=== PATIENT | male | born 1970 | race Caucasian/White ===

== ENCOUNTER 2022-10-08 14:14 | Inpatient (IN) | payer MEDICAID ==
[~2022-10-08] VITALS: Ht 172.7 cm; Wt 108.4 kg
[2022-10-08] MEDS ORDERED: AMIODARONE HCL 50MG/ML 3ML VIAL IV ONE (14:45)
[2022-10-08 15:05] LABS: CHLORIDE 108 mEq/L (98-107)
[2022-10-08 15:17] LABS: BASOPHILS % 0.7 % (0.0-2.0); EOSINOPHILS % 1.4 % (0.0-5.0); HEMATOCRIT. 40.4 % (42.0-52.0); HEMOGLOBIN. 13.8 g/dL (14.0-18.0); LYMPHOCYTES % 23.9 % (20.0-50.0); MEAN CORPUSCULAR HEMOGLOBIN 30.8 pg (28.0-32.0); MEAN CORPUSCULAR VOLUME 90.1 fL (80.0-94.0); MEAN PLATELET VOLUME 10.6 fl (7.4-10.4); MONOCYTES % 7.2 % (2.0-8.0); NEUTROPHILS % 66.8 % (40.0-76.0); PLATELET 228 x1000/uL (130-400); RED BLOOD CELL COUNT 4.48 mill/uL (4.7-6.1)
[2022-10-08] MEDS ORDERED: AMIODARONE HCL 150 MG in DEXT 5% WATER 100 ML IV ONE (15:30)
[2022-10-08] MEDS ORDERED: FUROSEMIDE 40MG/4ML VIAL IVP ONE (16:15)
[2022-10-08] MEDS ORDERED: APIXABAN 5 MG TABLET PO ONE (16:15)
[2022-10-08] MEDS ORDERED: CALCIUM CHLORIDE 1,000 MG in DEXT 5% WATER 90 ML IV ONE (16:30)
[2022-10-08] MEDS ORDERED: DILTIAZEM HCL 5MG/ML 5ML VIAL IV ONE ×3 (16:30→18:00)
[2022-10-08] MEDS ORDERED: DILTIAZEM HCL 125 MG in DEXT 5% WATER 100 ML IV ONE ×2 (18:00→18:30)
[2022-10-08] MEDS ORDERED: ONDANSETRON HCL 4MG/2ML INJ IV PRN (19:15)
[2022-10-08] MEDS ORDERED: NITROGLYCERIN 0.4MG TABLET SL SL PRN (19:15)
[2022-10-08] MEDS ORDERED: MAGNESIUM/ALUMINUM HYDROXIDE/SIMETHICONE 30ML UDC PO PRN (19:15)
[2022-10-08] MEDS ORDERED: DOCUSATE SODIUM 100MG CAPSULE PO PRN (19:15)
[2022-10-08] MEDS ORDERED: IPRATROPIUM/ALBUTEROL 0.5-3(2.5)MG/3ML NEB NEB PRN (19:15)
[2022-10-08] MEDS ORDERED: NA PHOS,M-B/NA PHOS,DI-BA ENEMA 118ML PR PRN (19:15)
[2022-10-08] MEDS ORDERED: ZOLPIDEM TARTRATE 5MG TABLET PO PRN (19:15)
[2022-10-08] MEDS ORDERED: GUAIFENESIN 200MG/10ML SUGAR FREE UDC PO PRN (19:15)
[2022-10-08] MEDS ORDERED: CLONIDINE 0.1MG TABLET PO PRN (19:15)
[2022-10-08] MEDS ORDERED: ACETAMINOPHEN 325MG TABLET PO PRN ×2 (19:15)
[2022-10-08] MEDS ORDERED: DILTIAZEM HCL 125 MG in DEXT 5% WATER 100 ML IV SCH (19:15)
[2022-10-08] MEDS ORDERED: KETOROLAC 15MG/ML VIAL IV PRN (19:15)
[2022-10-08 19:37] LABS: ETHANOL BLOOD < 10 mg/dL; HDL CHOLESTEROL 37 mg/dL (40-59); LDL CHOLESTEROL 50 mg/dL (5-100); T4 FREE 1.49 ng/dL (0.76-1.46); TOTAL IRON BINDING CAPACITY 363 ug/dL (250-450)
[2022-10-08 19:53] LABS: VITAMIN B12 SERUM 416 pg/mL (211-911)
[2022-10-08] MEDS: FAMOTIDINE 20MG TABLET PO SCH (22:54)
[2022-10-08] MEDS ORDERED: DEXTROSE 50% WATER 50ML SYRINGE IV PRN (23:45)
[2022-10-09] VITALS (8 sets, daily range): BP systolic 106–124; BP diastolic 57–79
[2022-10-09] MEDS: FUROSEMIDE 40MG/4ML VIAL IVP SCH ×2 (00:58→10:03)
[2022-10-09 01:13] LABS: CREATINE KINASE MB FRACTION 1.6 ng/mL (0.5-3.6)
[2022-10-09 03:57] LABS: *AMPHETAMINES SCREEN URINE NEGATIVE (NEGATIVE); *BARBITURATES SCREEN URINE NEGATIVE (NEGATIVE); *BENZODIAZEPINES SCREEN URINE NEGATIVE (NEGATIVE); *COCAINE SCREEN URINE NEGATIVE (NEGATIVE); CANNABINOID URINE SCREEN NEGATIVE (NEGATIVE); METHADONE URINE SCREEN NEGATIVE (NEGATIVE); OPIATES URINE SCREEN NEGATIVE (NEGATIVE); PHENCYCLIDINE URINE SCREEN NEGATIVE (NEGATIVE)
[2022-10-09 05:34] LABS: BASOPHILS % 0.5 % (0.0-2.0); EOSINOPHILS % 2.2 % (0.0-5.0); HEMOGLOBIN. 13.4 g/dL (14.0-18.0); LYMPHOCYTES % 27.2 % (20.0-50.0); MEAN CORPUSCULAR HEMOGLOBIN 30.8 pg (28.0-32.0); MEAN CORPUSCULAR VOLUME 89.7 fL (80.0-94.0); MEAN PLATELET VOLUME 10.5 fl (7.4-10.4); MONOCYTES % 8.5 % (2.0-8.0); NEUTROPHILS % 61.6 % (40.0-76.0); PLATELET 214 x1000/uL (130-400); RED BLOOD CELL COUNT 4.34 mill/uL (4.7-6.1); RED CELL DISTRIBUTION WIDTH 13.7 % (11.6-14.6)
[2022-10-09 05:39] LABS: CHLORIDE 107 mEq/L (98-107)
[2022-10-09 05:43] LABS: INR 1.1; PROTHROMBIN TIME 11.9 sec (9.6-11.0)
[2022-10-09 05:47] LABS: PHOSPHORUS 3.7 mg/dL (2.5-4.9)
[2022-10-09 05:48] LABS: CREATINE KINASE MB FRACTION 1.3 ng/mL (0.5-3.6)
[2022-10-09] MEDS ORDERED: ENOXAPARIN 120MG/0.8ML SYR SUBCUT NR (06:00)
[2022-10-09 07:48] LABS: BG BASE EXCESS -0.1 mmol/L (-2.0-2.0); BG CARBOXYHEMOGLOBIN 1.2 % (0.5-1.5); BG DEOXYHEMOGLOBIN 7.8 % (0.0-5.0); BG HCO3 ACT 22.6 mmol/L (22.0-26.0); BG METHEMOGLOBIN 0.5 % (0.0-1.5); BG OXYGEN SATURATION 92.1 % (92.0-98.5); BG OXYHEMOGLOBIN 90.5 % (94.0-97.0); BG PCO2 31.6 mmHg (35.0-45.0); BG PH 7.473 (7.350-7.450); BG PO2 61.3 mmHg (75.0-100.0); BG SAMPLE SITE RIGHT RADIAL; BG TOTAL HEMOGLOBIN 14.6 g/dL (12.0-18.0); BG VENT MODE ROOM AIR
[2022-10-09] MEDS: LISINOPRIL 10MG TABLET PO SCH (09:30)
[2022-10-09] MEDS: BLOOD SUGAR DIAGNOSTIC STRIP TEST SCH ×5 (09:39→21:46)
[2022-10-09] MEDS: INSULIN LISPRO 100 UNITS/ML SUBCUT SCH ×6 (09:45→22:11)
[2022-10-09] MEDS: ASPIRIN 325MG EC TABLET PO SCH (09:57)
[2022-10-09] MEDS: FAMOTIDINE 20MG TABLET PO SCH ×2 (09:57→22:09)
[2022-10-09] MEDS: DILTIAZEM HCL 125 MG in DEXT 5% WATER 100 ML IV SCH (10:22)
[2022-10-09] MEDS: FENOFIBRATE NANOCRYSTALLIZED 145MG TABLET PO SCH (10:32)
[2022-10-09] MEDS ORDERED: KETOROLAC 15MG/ML VIAL IV PRN (11:45)
[2022-10-09] MEDS ORDERED: ATOR40TA70 PO (18:29)
[2022-10-09] MEDS ORDERED: METF-416 PO (18:29)
[2022-10-09] MEDS ORDERED: LISI10TA26 PO (18:29)
[2022-10-09] MEDS ORDERED: GLIM4TAB36 PO (18:31)
[2022-10-09] MEDS ORDERED: FENO200C27 PO (18:31)
[2022-10-09] MEDS: ATORVASTATIN CALCIUM 40MG TABLET PO SCH (22:09)
[2022-10-09] MEDS: ENOXAPARIN 120MG/0.8ML SYR SUBCUT SCH (22:09)
[2022-10-10] VITALS (14 sets, daily range): BP systolic 93–123; BP diastolic 53–81
[2022-10-10] MEDS: DILTIAZEM HCL 125 MG in DEXT 5% WATER 100 ML IV SCH (01:47)
[2022-10-10 06:12] LABS: BASOPHILS % 0.5 % (0.0-2.0); EOSINOPHILS % 1.9 % (0.0-5.0); HEMATOCRIT. 38.9 % (42.0-52.0); HEMOGLOBIN. 13.2 g/dL (14.0-18.0); LYMPHOCYTES % 22.1 % (20.0-50.0); MEAN CORPUSCULAR HEMOGLOBIN 30.5 pg (28.0-32.0); MEAN CORPUSCULAR VOLUME 89.8 fL (80.0-94.0); MEAN PLATELET VOLUME 11.2 fl (7.4-10.4); MONOCYTES % 8.3 % (2.0-8.0); NEUTROPHILS % 67.2 % (40.0-76.0); PLATELET 215 x1000/uL (130-400); RED BLOOD CELL COUNT 4.33 mill/uL (4.7-6.1); RED CELL DISTRIBUTION WIDTH 13.8 % (11.6-14.6)
[2022-10-10 06:43] LABS: CHLORIDE 108 mEq/L (98-107)
[2022-10-10] MEDS: BLOOD SUGAR DIAGNOSTIC STRIP TEST SCH ×4 (07:13→21:35)
[2022-10-10] MEDS: ENOXAPARIN 120MG/0.8ML SYR SUBCUT SCH ×2 (09:40→21:31)
[2022-10-10] MEDS: LISINOPRIL 10MG TABLET PO SCH (09:40)
[2022-10-10] MEDS: FUROSEMIDE 40MG/4ML VIAL IVP SCH (09:40)
[2022-10-10] MEDS: ASPIRIN 325MG EC TABLET PO SCH (09:40)
[2022-10-10] MEDS: FAMOTIDINE 20MG TABLET PO SCH ×2 (09:40→21:29)
[2022-10-10] MEDS: INSULIN LISPRO 100 UNITS/ML SUBCUT SCH ×4 (09:51→21:35)
[2022-10-10] MEDS: FENOFIBRATE NANOCRYSTALLIZED 145MG TABLET PO SCH (10:26)
[2022-10-10] MEDS ORDERED: DILTIAZEM HCL 125 MG in DEXT 5% WATER 100 ML IV PRN (10:45)
[2022-10-10] MEDS ORDERED: DILTIAZEM HCL 60MG TABLET PO SCH (12:00)
[2022-10-10] MEDS: METOPROLOL TARTRATE 50MG TABLET PO SCH ×2 (13:42→21:30)
[2022-10-10] MEDS: ATORVASTATIN CALCIUM 40MG TABLET PO SCH (21:29)
[2022-10-11] VITALS (15 sets, daily range): BP systolic 89–117; BP diastolic 46–77
[2022-10-11] MEDS: DILTIAZEM HCL 125 MG in DEXT 5% WATER 100 ML IV SCH (06:40)
[2022-10-11] MEDS: BLOOD SUGAR DIAGNOSTIC STRIP TEST SCH ×4 (07:30→21:00)
[2022-10-11 07:52] LABS: BASOPHILS % 0.9 % (0.0-2.0); EOSINOPHILS % 2.9 % (0.0-5.0); HEMATOCRIT. 41.2 % (42.0-52.0); MEAN CORPUSCULAR HEMOGLOBIN 30.7 pg (28.0-32.0); MEAN CORPUSCULAR VOLUME 90.2 fL (80.0-94.0); MEAN PLATELET VOLUME 10.9 fl (7.4-10.4); NEUTROPHILS % 57.2 % (40.0-76.0); PLATELET 233 x1000/uL (130-400); RED BLOOD CELL COUNT 4.57 mill/uL (4.7-6.1); RED CELL DISTRIBUTION WIDTH 13.7 % (11.6-14.6)
[2022-10-11 08:17] LABS: CHLORIDE 107 mEq/L (98-107)
[2022-10-11] MEDS: FUROSEMIDE 40MG/4ML VIAL IVP SCH (09:33)
[2022-10-11] MEDS: ENOXAPARIN 120MG/0.8ML SYR SUBCUT SCH ×2 (09:33→22:02)
[2022-10-11] MEDS: INSULIN LISPRO 100 UNITS/ML SUBCUT SCH ×4 (09:34→22:12)
[2022-10-11] MEDS: LISINOPRIL 10MG TABLET PO SCH (09:35)
[2022-10-11] MEDS: ASPIRIN 325MG EC TABLET PO SCH (09:35)
[2022-10-11] MEDS: FAMOTIDINE 20MG TABLET PO SCH ×2 (09:35→22:03)
[2022-10-11] MEDS: METOPROLOL TARTRATE 50MG TABLET PO SCH ×2 (09:35→22:03)
[2022-10-11] MEDS: FENOFIBRATE NANOCRYSTALLIZED 145MG TABLET PO SCH (14:52)
[2022-10-11] MEDS ORDERED: IPRATROPIUM BROMIDE (0.02%) 0.5MG/2.5ML NEB HHN PRN (17:15)
[2022-10-11] MEDS ORDERED: ALBUTEROL (0.083%) 2.5MG/3ML NEB HHN PRN (17:15)
[2022-10-11] MEDS: ATORVASTATIN CALCIUM 40MG TABLET PO SCH (22:03)
[2022-10-12] VITALS (12 sets, daily range): BP systolic 80–135; BP diastolic 50–86
[2022-10-12] MEDS: DILTIAZEM HCL 125 MG in DEXT 5% WATER 100 ML IV SCH (05:45)
[2022-10-12] MEDS: BLOOD SUGAR DIAGNOSTIC STRIP TEST SCH ×4 (07:30→21:00)
[2022-10-12] MEDS: FAMOTIDINE 20MG TABLET PO SCH ×2 (09:03→22:18)
[2022-10-12] MEDS: LISINOPRIL 10MG TABLET PO SCH (09:03)
[2022-10-12] MEDS: METOPROLOL TARTRATE 50MG TABLET PO SCH ×2 (09:04→22:21)
[2022-10-12] MEDS: INSULIN LISPRO 100 UNITS/ML SUBCUT SCH ×4 (09:06→22:23)
[2022-10-12] MEDS: ASPIRIN 325MG EC TABLET PO SCH (09:07)
[2022-10-12] MEDS: FUROSEMIDE 40MG/4ML VIAL IVP SCH (09:08)
[2022-10-12] MEDS: ENOXAPARIN 120MG/0.8ML SYR SUBCUT SCH ×2 (09:09→22:21)
[2022-10-12] MEDS ORDERED: DIGOXIN 500MCG/2ML AMP IV NR (12:00)
[2022-10-12] MEDS: FENOFIBRATE NANOCRYSTALLIZED 145MG TABLET PO SCH (13:01)
[2022-10-12] MEDS ORDERED: AMIODARONE HCL 150 MG in DEXT 5% WATER 100 ML IV NR (14:00)
[2022-10-12] MEDS: AMIODARONE HCL 900 MG in DEXT 5% WATER 482 ML IV PRN (15:04)
[2022-10-12] MEDS: ATORVASTATIN CALCIUM 40MG TABLET PO SCH (22:19)
[2022-10-13] VITALS (16 sets, daily range): BP systolic 97–129; BP diastolic 58–86
[2022-10-13] MEDS: DILTIAZEM HCL 125 MG in DEXT 5% WATER 100 ML IV SCH (05:45)
[2022-10-13] MEDS: BLOOD SUGAR DIAGNOSTIC STRIP TEST SCH ×4 (07:30→20:56)
[2022-10-13] MEDS: INSULIN LISPRO 100 UNITS/ML SUBCUT SCH ×4 (08:00→20:56)
[2022-10-13] MEDS: LISINOPRIL 10MG TABLET PO SCH (09:00)
[2022-10-13] MEDS: ENOXAPARIN 120MG/0.8ML SYR SUBCUT SCH ×2 (09:00→22:29)
[2022-10-13] MEDS: FENOFIBRATE NANOCRYSTALLIZED 145MG TABLET PO SCH (09:00)
[2022-10-13] MEDS: FAMOTIDINE 20MG TABLET PO SCH ×2 (09:00→21:55)
[2022-10-13] MEDS: METOPROLOL TARTRATE 50MG TABLET PO SCH (09:00)
[2022-10-13 10:11] LABS: CHLORIDE 108 mEq/L (98-107)
[2022-10-13] MEDS: FUROSEMIDE 40MG/4ML VIAL IVP SCH ×2 (11:02→18:51)
[2022-10-13] MEDS ORDERED: NICARDIPINE 100MCG/ML 10ML VIAL (CATH LAB) IV ONE (13:00)
[2022-10-13] MEDS ORDERED: NITROGLYCERIN 50MCG/ML 10ML VIAL (CATH LAB) IV ONE (13:00)
[2022-10-13] MEDS ORDERED: LIDOCAINE HCL/PF 2% 20MG/ML 5 ML/VIAL ONE ×2 (13:37→14:04)
[2022-10-13] MEDS ORDERED: IODIXANOL 320MG/ML 100 ML BOTTLE IV ONE (13:37)
[2022-10-13] MEDS ORDERED: VERAPAMIL HCL 2.5 MG/1 ML 2ML VIAL IV ONE (13:38)
[2022-10-13] MEDS ORDERED: DIPHENHYDRAMINE 50MG/ML VIAL ONE (13:38)
[2022-10-13] MEDS ORDERED: MIDAZOLAM HCL 2 MG/2 ML VIAL ONE (14:01)
[2022-10-13] MEDS ORDERED: FENTANYL CITRATE/PF 50MCG/ML 2ML VIAL ONE (14:01)
[2022-10-13] MEDS ORDERED: LIDOCAINE HCL/PF 1% 10 MG/ML 5ML VIAL ONE (14:03)
[2022-10-13] MEDS ORDERED: HEPARIN 1000 UNITS/ML 10ML ONE (14:39)
[2022-10-13] MEDS ORDERED: ATROPINE SULFATE 1MG/10ML SYR IV PRN (15:15)
[2022-10-13] MEDS: DIGOXIN 500MCG/2ML AMP IV SCH (18:52)
[2022-10-13] MEDS: ATORVASTATIN CALCIUM 40MG TABLET PO SCH (21:55)
[2022-10-13] MEDS: AMIODARONE HCL 900 MG in DEXT 5% WATER 482 ML IV PRN (22:03)
[2022-10-14] VITALS (15 sets, daily range): BP systolic 89–130; BP diastolic 52–90
[2022-10-14 06:51] LABS: CHLORIDE 106 mEq/L (98-107)
[2022-10-14 07:16] LABS: DIGOXIN 0.5 ng/mL (0.9-2.0)
[2022-10-14] MEDS: INSULIN LISPRO 100 UNITS/ML SUBCUT SCH ×4 (07:25→22:19)
[2022-10-14] MEDS: BLOOD SUGAR DIAGNOSTIC STRIP TEST SCH ×4 (07:25→22:19)
[2022-10-14 07:26] LABS: BASOPHILS % 0.8 % (0.0-2.0); EOSINOPHILS % 5.1 % (0.0-5.0); HEMATOCRIT. 44.4 % (42.0-52.0); HEMOGLOBIN. 15.1 g/dL (14.0-18.0); LYMPHOCYTES % 22.5 % (20.0-50.0); MEAN CORPUSCULAR HEMOGLOBIN 30.5 pg (28.0-32.0); MEAN CORPUSCULAR VOLUME 89.9 fL (80.0-94.0); MEAN PLATELET VOLUME 10.7 fl (7.4-10.4); MONOCYTES % 11.9 % (2.0-8.0); NEUTROPHILS % 59.7 % (40.0-76.0); PLATELET 222 x1000/uL (130-400); RED BLOOD CELL COUNT 4.94 mill/uL (4.7-6.1); RED CELL DISTRIBUTION WIDTH 13.4 % (11.6-14.6)
[2022-10-14] MEDS: FAMOTIDINE 20MG TABLET PO SCH ×2 (07:26→22:15)
[2022-10-14] MEDS: FUROSEMIDE 40MG/4ML VIAL IVP SCH ×2 (07:31→17:17)
[2022-10-14] MEDS: FENOFIBRATE NANOCRYSTALLIZED 145MG TABLET PO SCH (09:22)
[2022-10-14] MEDS: ENOXAPARIN 120MG/0.8ML SYR SUBCUT SCH ×2 (09:22→22:15)
[2022-10-14] MEDS: METOPROLOL TARTRATE 100MG TABLET PO SCH ×2 (09:23→22:16)
[2022-10-14] MEDS: LISINOPRIL 10MG TABLET PO SCH (09:23)
[2022-10-14] MEDS: DIGOXIN 500MCG/2ML AMP IV SCH (17:19)
[2022-10-14] MEDS: ATORVASTATIN CALCIUM 40MG TABLET PO SCH (22:15)
[2022-10-15] VITALS (14 sets, daily range): BP systolic 100–129; BP diastolic 57–92
[2022-10-15] MEDS: FUROSEMIDE 40MG/4ML VIAL IVP SCH ×2 (05:44→18:05)
[2022-10-15] MEDS: AMIODARONE HCL 900 MG in DEXT 5% WATER 482 ML IV PRN (05:45)
[2022-10-15] MEDS: BLOOD SUGAR DIAGNOSTIC STRIP TEST SCH ×3 (06:57→18:08)
[2022-10-15] MEDS: INSULIN LISPRO 100 UNITS/ML SUBCUT SCH ×3 (07:59→18:07)
[2022-10-15] MEDS ORDERED: LIDOCAINE 2% 6ML GLYDO MM ONE (08:34)
[2022-10-15] MEDS ORDERED: TETRACAINE/BENZOCAINE/BUTAMBEN 20 GM SPRAY MM ONE (08:35)
[2022-10-15] MEDS ORDERED: FENTANYL CITRATE/PF 50MCG/ML 2ML VIAL ONE (08:57)
[2022-10-15] MEDS ORDERED: MIDAZOLAM HCL 2 MG/2 ML VIAL ONE ×2 (08:57→08:59)
[2022-10-15] MEDS: METOPROLOL TARTRATE 100MG TABLET PO SCH (09:00)
[2022-10-15] MEDS: FENOFIBRATE NANOCRYSTALLIZED 145MG TABLET PO SCH (09:00)
[2022-10-15] MEDS: LISINOPRIL 10MG TABLET PO SCH (09:00)
[2022-10-15] MEDS: FAMOTIDINE 20MG TABLET PO SCH (09:00)
[2022-10-15] MEDS: ENOXAPARIN 120MG/0.8ML SYR SUBCUT SCH (09:00)
[2022-10-15] MEDS ORDERED: AMIODARONE HCL 200 MG TABLET PO SCH (10:15)
[2022-10-15] MEDS ORDERED: ASPI-1406 MT (10:44)
[2022-10-15] MEDS ORDERED: RIVA20TA MT (10:44)
[2022-10-15] MEDS ORDERED: FAMO20TA8 PO (10:44)
[2022-10-15] MEDS ORDERED: SPIR25TA MT (10:44)
[2022-10-15] MEDS ORDERED: GLIM4TAB36 MT (10:44)
[2022-10-15] MEDS ORDERED: METO100T16 PO (10:44)
[2022-10-15] MEDS ORDERED: FURO-151 MT (10:44)
[2022-10-15] MEDS ORDERED: AMI2 PO (10:44)
== END 2022-10-15 18:30 | disposition home or self-care (01) | DRG 192 ==
LOC: ER 14:14 → EDBEDREQ 14:54 → MICUSO 17:50 → EDBEDREQSVC 17:54 → EDBEDREQTM 17:54 → EDBEDREQ 17:54 → 5EST 10-09 17:26
PROVIDERS: ADMIT Internal Medicine; ATTEND Internal Medicine
PROC: 4A023N7 Measurement of Cardiac Sampling and Pressure, Left Heart, Percutaneous Approach (ICD-10-PCS; principal; 2022-10-13)
PROC: B211YZZ Fluoroscopy of Multiple Coronary Arteries using Other Contrast (ICD-10-PCS; 2022-10-13)
DX: I11.0 Hypertensive heart disease with heart failure (principal); I42.8 Other cardiomyopathies; I48.91 Unspecified atrial fibrillation; I50.21 Acute systolic (congestive) heart failure; R06.03 Acute respiratory distress; I25.10 Atherosclerotic heart disease of native coronary artery without angina pectoris; Z20.822 Contact with and (suspected) exposure to COVID-19; E11.9 Type 2 diabetes mellitus without complications; E78.5 Hyperlipidemia, unspecified; Z88.0 Allergy status to penicillin; Z79.01 Long term (current) use of anticoagulants; Z79.82 Long term (current) use of aspirin; Z79.84 Long term (current) use of oral hypoglycemic drugs; Z79.899 Other long term (current) drug therapy
CPT/HCPCS: 36415; 36600; 71045; 80048; 80053; 80061; 80162; 80305; 80320; 82375; 82550; 82553; 82607; 82746; 82805; 82962; 83036; 83540; 83550; 83605; 83735; 83880; 84100; 84145; 84439; 84443; 84484; 85025; 87426; 92960; 93005; 93306; 93312; 93458; 93970; 99291; C1769; C1887; C1893; C9803; J0282; J1160; J1200; J1644; J1650; J1815; J1940; J2250; J3010; J3490; J7060; Q9967; G0480